=== PATIENT | female | born 1945 ===

== ENCOUNTER 2017-12-02 08:40 | Emergency (ER) | payer OTHER ==
[2017-12-02 08:52] VITALS: RESP 19; TEMP 98
--- NOTE | 2017-12-02 09:11 | ED PDOC ---
Lower Extremity Pain/Injury Time Seen by Provider: 12/02/17 09:00 Chief Complaint (Nursing): Lower Extremity Problem/Injury History Per: Patient History/Exam Limitations: no limitations Onset/Duration Of Symptoms: Days (x yesterday) Current Symptoms Are (Timing): Still Present Additional Complaint(s): Ms. Walter is a 72 year old female, with a pmhx of high cholesterol and high blood pressure, who presents to the emergency department complaining of bilateral knee pain (left more than right) since yesterday. Patient reports she has had same pain before. Reports she took ibuprofen yesterday with no relief. Worse with walking. No trauma. PMD: Héctor Sanchez Past Medical History Reviewed: Historical Data, Nursing Documentation, Vital Signs Vital Signs: Last Vital Signs Temp 98 F 12/02/17 08:50 Pulse 76 12/02/17 08:50 Resp 19 12/02/17 08:50 BP 137/81 12/02/17 08:50 Pulse Ox 96 12/02/17 08:50 - Medical History PMH: HTN, Hypercholesterolemia - Family History Family History: States: Unknown Family Hx - Social History Current smoker - smoking cessation education provided: No Alcohol: None - Home Medications Home Medications: Ambulatory Orders Medication Instructions Recorded traMADol [Ultram] 50 mg PO HS PRN #5 tab 12/02/17 - Allergies Allergies/Adverse Reactions: Allergies Allergy/AdvReac Type Severity Reaction Status Date / Time No Known Allergies Allergy Verified 12/02/17 08:50 Review of Systems ROS Statement: Except As Marked, All Systems Reviewed And Found Negative Musculoskeletal: Positive for: Other (Bilateral knee pain (left more than right) ) Physical Exam - Reviewed Nursing Documentation Reviewed: Yes Vital Signs Reviewed: Yes - Physical Exam Extremity: Positive for: Normal ROM (Full ROM), Tenderness (Tenderness to palpation bilateral anterior knees), Capillary Refill (<2 sec). Negative for: Pedal Edema, Calf Tenderness, Deformity, Swelling, Other (erythema, edema, indurations) Neurologic/Psych: Positive for: Alert, feed blender II-XII, Oriented (x 3). Negative for : Motor/Sensory Deficits - ECG O2 Sat by Pulse Oximetry: 96 (RA) Pulse Ox Interpretation: Normal Medical Decision Making Medical Decision Making: Time: 09:04 Impression(s): Acute on Chronic Knee Pain Plan: - Bilateral Knee X-Ray - Motrin Tab 600 mg PO STAT - Ultram 50 mg PO STAT Time: 10:37 Bilateral Knee X-Ray FINDINGS: No acute fracture dislocation or destructive bony lesion is appreciated bilaterally. Diffuse osteopenia suggests at least an element of osteoporosis. Joint space narrowing seen greater the left and right knees at the medial and lateral femorotibial tibial compartments and also the patellofemoral compartments. Cortical sclerosis and osteophyte development, the findings compatible with tricompartmental osteoarthritis. No subluxation. Trace left suprapatellar bursa effusion is identified. None is seen the right. Soft tissues otherwise reflect heterotopic calcification in the posterior distal left thigh subcutaneous fat. IMPRESSION: No acute fracture or dislocation. No suspicious lytic or blastic change. Tricompartmental osteoarthritis appears relatively advanced. Scribe Attestation: Documented by Nicolas Meadows, acting as a scribe for Cary Perez MD. Provider Scribe Attestation: All medical record entries made by the Scribe were at my direction and personally dictated by me. I have reviewed the chart and agree that the record accurately reflects my personal performance of the history, physical exam, medical decision making, and the department course for this patient. I have also personally directed, reviewed, and agree with the discharge instructions and disposition. Disposition - Clinical Impression Clinical Impression: Bilateral knee pain - Patient ED Disposition Is Patient to be Admitted: No - Disposition Referrals: [facility] [Outside] [facility] [Outside] Disposition: Routine/Home Disposition Time: 11:00 Condition: STABLE Prescriptions: traMADol [Ultram] 50 mg PO HS PRN #5 tab PRN Reason: Pain, Severe (8-10) Instructions: Chronic Knee Pain Forms: [employer] (Eth[place]ian) Print Language: BURMESE
--- NOTE | 2017-12-02 10:39 | RAD ---
PROCEDURE: BILATERAL KNEE SERIES HISTORY: Bilateral anterior knee pain COMPARISON: Right knee series 06/09/2011. No left-sided comparison available. TECHNIQUE: Three views of each knee have been submitted for interpretation. FINDINGS: No acute fracture dislocation or destructive bony lesion is appreciated bilaterally. Diffuse osteopenia suggests at least an element of osteoporosis. Joint space narrowing seen greater the left and right knees at the medial and lateral femorotibial tibial compartments and also the patellofemoral compartments. Cortical sclerosis and osteophyte development, the findings compatible with tricompartmental osteoarthritis. No subluxation. Trace left suprapatellar bursa effusion is identified. None is seen the right. Soft tissues otherwise reflect heterotopic calcification in the posterior distal left thigh subcutaneous fat. IMPRESSION: No acute fracture or dislocation. No suspicious lytic or blastic change. Tricompartmental osteoarthritis appears relatively advanced.
[2017-12-02 11:23] VITALS: BP 145/75; PULSE 71
[2017-12-02 16:48] VITALS: O2SAT 96
== END 2017-12-02 11:37 | disposition home or self-care (01) ==
LOC: H.ER 08:40
DX: M25.561 Pain in right knee (principal); M25.562 Pain in left knee; G89.29 Other chronic pain; E78.00 Pure hypercholesterolemia, unspecified; I10 Essential (primary) hypertension